=== PATIENT | male | born 1960 | race Caucasian/White ===

== ENCOUNTER 2017-06-09 07:32 | Emergency (ER) | payer OTHER ==
[2017-06-09] MEDS ORDERED: SODIUM CHLORIDE 0.9% 1,000 ML IV STA (07:35)
[2017-06-09] MEDS ORDERED: RX INFO: IV CONTRAST WAS GIVEN 1 EACH MISC MISCELLANE PRN (07:35)
[2017-06-09 07:44] LABS: Basophils % (A) 0 %; CH 29.6; CHCM 31.1; Eosinophils # (A) 0.2 k/uL (0-0.7); Eosinophils % (A) 2 %; HCT 43.7 % (39.0-53.0); HDW 2.49; HGB 13.4 gm/dL (13.0-17.5); Hypochromasia Slight; Luc # (Auto) 0.24; Luc % (Auto) 2; Lymphocytes % (A) 19 %; MCH 29.4 pg (25.0-35.0); MCHC 30.7 g/dL (31.0-37.0); MCV 95.6 fL (80.0-100.0); Mean Platelet Volume 7.4; Monocytes # (A) 0.7 k/uL (0-1.0); Monocytes % (A) 7 %; Neutrophils # (A) 7.6 k/uL (1.3-7.7); Neutrophils % (A) 70 %; RBC 4.57 m/uL (4.30-5.90); RDW 14.2 % (11.5-15.5); WBC 10.8 k/uL (3.8-10.6); WBC (Perox) 10.99
[2017-06-09 07:57] LABS: ALT 71 U/L (21-72); AST 88 U/L (17-59); Alcohol <10 mg/dL; Alkaline Phosphatase 84 U/L (38-126); Amylase <30 U/L (30-110); Anion Gap 7 mmol/L; Blood Urea Nitrogen 26 mg/dL (9-20); Calcium 8.5 mg/dL (8.4-10.2); Carbon Dioxide 26 mmol/L (22-30); Chloride 104 mmol/L (98-107); Glucose 133 mg/dL (74-99); Non-African American GFR(MDRD) >60 (>60 ml/min/1.73 sqM); Potassium 4.9 mmol/L (3.5-5.1); Sodium 137 mmol/L (137-145); Total Bilirubin 0.8 mg/dL (0.2-1.3); Total Protein 5.6 g/dL (6.3-8.2)
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
--- NOTE | 2017-06-09 08:18 | XR ---
EXAMINATION TYPE: XR pelvis AP view DATE OF EXAM: 06/09/2017 COMPARISON: NONE HISTORY: Pain The osseous structures are intact and the joint spaces are preserved. No acute fracture is seen. Vi sualized bowel gas pattern is nonspecific. There are multiple right-sided renal calculi with evidence of previous surgery in the abdomen. Postsu rgical change involving the right hip and severe arthropathy of the left hip. Calcifications the pelvis may be related to the prostate. Due to positioning and lack of the visualiz ation of the right iliac bone noted. IMPRESSION: 1. Severely limited exam due to positioning. Right-sided renal stones are noted. Correlate with CT of the pelvis.
[2017-06-09 08:23] LABS: Glucose,Whole Blood 144 mg/dL (75-99)
[2017-06-09 08:25] LABS: Appearance,Urine Clear (Clear); Bilirubin,Urine Negative (Negative); Glucose,Urine (UA) Negative (Negative); Ketones,Urine Negative (Negative); Leukocyte Esterase,Urine Negative (Negative); Mucus,Urine Rare /hpf; Nitrite,Urine Negative (Negative); Particle Count 3002; Protein,Urine Trace (Negative); RBC,Urine 33 /hpf (0-5); Specific Gravity,Urine 1.017 (1.001-1.035); UA Billing (MACRO vs. MICRO) MICRO; Urobilinogen,Urine <2.0 mg/dL (<2.0); WBC,Urine 3 /hpf (0-5)
[2017-06-09 08:34] LABS: Creatine Kinase MB 5.8 ng/mL (0.0-2.4); Troponin I 0.044 ng/mL (0.000-0.034)
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
[2017-06-09 08:36] LABS: INR 1.1 (<1.2); Partial Thromboplastin Time 24.8 sec (22.0-30.0); Prothrombin Time 10.8 sec (9.0-12.0)
[2017-06-09] MEDS ORDERED: PHENYTOIN SODIUM INJ 1,000 MG in SODIUM CHLORIDE 0.9% 100 ML IVPB STA (08:39)
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
[2017-06-09] MEDS ORDERED: MIDAZOLAM (PF) 1 MG/ML 5 ML VIAL IV STA (09:01)
[2017-06-09] MEDS ORDERED: SUCCINYLCHOLINE CHLORIDE VIAL 200 MG/10 ML VIAL IV STA (09:01)
[2017-06-09 09:10] LABS: ABG PCO2 41 mmHg (35-45); ABG PH 7.33 (7.35-7.45)
[2017-06-09 09:11] LABS: ABG HCO3 21 mmol/L (21-25); ABG PO2 327 mmHg (83-108); ABG TCO2 23 mmol/L (19-24)
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
[2017-06-09 10:38] VITALS: BP 82/52; PULSE 65; RESP 20; TEMP 97.9
== END 2017-06-09 09:21 | disposition short-term general hospital (02) ==
LOC: EDBD → SUPCPDRO 07:32 → EC 07:32
DX: S06.6X9A Traumatic subarachnoid hemorrhage with loss of consciousness of unspecified duration, initial encounter (principal); S06.5X9A Traumatic subdural hemorrhage with loss of consciousness of unspecified duration, initial encounter; S22.31XA Fracture of one rib, right side, initial encounter for closed fracture; S27.329A Contusion of lung, unspecified, initial encounter; S70.211A Abrasion, right hip, initial encounter; S50.311A Abrasion of right elbow, initial encounter; V28.4XXA Motorcycle driver injured in noncollision transport accident in traffic accident, initial encounter; Y93.55 Activity, bike riding
CPT/HCPCS: 99291 ×2; 99292 ×2; 31500 ×2; 92950 ×2; 96365 ×2; 96366 ×2; 36415; 36600; 94002; 93005; 86900; 86901; 80053; 82150; 82550; 82553; 82805; 83605; 83690; 84484; 85025; 85610; 85730; 86850; 81001; 80306; 80320; 71010; 72170; 72125; 70450; 71260; 74177; J0330; J1165; J2250; Q9967